=== PATIENT | male | born 1990 | race Caucasian/White ===

== ENCOUNTER 2025-05-31 19:08 | Emergency (ER) | payer OTHER, SELFPAY ==
[2025-05-31 19:23] VITALS: BP 135/75; PULSE 71; RESP 16; TEMP 36.8; O2SAT 99
--- NOTE | 2025-05-31 19:32 | ED.EAR ---
HPI - Ear Problem General Chief complaint: Ear Stated complaint: Ear Pain Time Seen by Provider: 05/31/25 19:25 Source: patient and RN notes reviewed Mode of arrival: ambulatory Limitations: no limitations History of Present Illness HPI Narrative: [id number]-old male patient presents [facility] complaining of right ear pain that started today. Patient also reports having pain discharge, of his right ear. He has been down with upper respiratory infection last 5 days. Patient reports some cough and congestion. Patient has any fevers advice, chills nausea vomiting, diarrhea, chest pain, breathing problems, or any other upper respiratory symptoms. Related Data Allergies Allergy/AdvReac Type Severity Reaction Status Date / Time No Known Allergies Allergy Verified 05/31/25 19:28 Review of Systems Review of Systems: CONSTITUTIONAL: Denies fever, chills, or sweats. EYES: Denies visual changes, redness, or discharge. ENT: Denies rhinorrhea,sore throat. Positive for congestion, otalgia. CARDIOVASCULAR: Denies chest pain, palpitations, or edema. RESPIRATORY: Positive for cough. Negative for wheezing or dyspnea. GASTROINTESTINAL: Denies abdominal pain, nausea, vomiting, or diarrhea. GENITOURINARY: Denies dysuria or hematuria. SKIN: Denies rash or itching. MUSCULOSKELETAL: Denies back pain, joint pain, or myalgia. NEUROLOGIC: Denies headache, numbness, or weakness. PSYCHIATRIC: Denies anxiety or depression. All other systems reviewed are negative, except as documented in HPI. PMFSH Comments At the time of my signature, I reviewed and agree with the nursing past medical, surgical, social, and family history. There is no relevant family history pertinent to the patient complaint. Exam Narrative: GENERAL: This is a well-nourished, well-developed adult, in no apparent distress. They are non ill-appearing, nontoxic appearing. HEAD: normocephalic, atraumatic. EYES: Sclera clear/white. Conjunctiva normal. Vision is grossly intact. Extraocular movements intact EARS: External ears normal, left auditory canal clear and without drainage, no tragal tenderness, right auditory canal erythematous watery bloody discharge present. Left TM normal without perforation. Right TM erythematous with a fusion present. No perforation. Hearing grossly intact. NOSE: External nose normal with no obvious nasal discharge, nasal turbinates erythemic, no rhinorrhea. THROAT: Mucous membranes moist, posterior pharynx cobblestone appearing Uvula midline. NECK: Neck supple, non-tender without lymphadenopathy, masses or thyromegaly. CARDIOVASCULAR: Regular rate and rhythm without murmurs, gallops, or rubs. RESPIRATORY: Clear to auscultation. Breath sounds equal bilaterally. No wheezes, rales, or rhonchi. SKIN: warm, Dry, intact with no suspicious lesions or rash, good texture and turgor. NEURO: awake, alert, and oriented to person, place and time. There were no obvious focal neurologic abnormalities. EXTREMITIES: No joint tenderness, effusion, or edema noted. BACK: Nontender without deformity. Course Course Level of Care: Express Care Visit Vital Signs Vital signs: Vital Signs Temperature 98.3 F 05/31/25 19:23 Pulse Rate 71 05/31/25 19:23 Respiratory Rate 16 05/31/25 19:23 Blood Pressure 135/75 05/31/25 19:23 Pulse Oximetry 99 05/31/25 19:23 Temperature 98.3 F 05/31/25 19:23 Pulse Rate 71 05/31/25 19:23 Respiratory Rate 16 05/31/25 19:23 Blood Pressure 135/75 05/31/25 19:23 Pulse Oximetry 99 05/31/25 19:23 [facility] MDM Narrative Medical decision making narrative: Appears patient likely has a right-sided otitis media along with right-sided otitis externa, will treat with amoxicillin and ofloxacin ear drops. Discussed supportive care. Discussed physical exam findings. Advised supportive measures and signs/symptoms to go to the ER. Pt is appropriate for outpt treatment and f/u. Differential Diagnosis Differential Diagnosis: Differential diagnostic considerations for upper respiratory infection include upper respiratory infection, croup, otitis media, sinusitis, viral infection, bronchitis, influenza, pharyngitis, strep, uvulitis, otitis externa. Critical Care Time Critical Care Time Critical Care Time: No Discharge Plan Discharge Clinical Impression: Otitis externa Qualifiers: Otitis externa type: diffuse Chronicity: acute Laterality: right Qualified Code(s): H60.311 - Diffuse otitis externa, right ear Otitis media Qualifiers: Otitis media type: other nonsuppurative Chronicity: acute Laterality: right Recurrence: non-recurrent Qualified Code(s): H65.191 - Other acute nonsuppurative otitis media, right ear Patient Disposition: Home Condition: Stable Instructions: Antibiotic Form, How to Use Ear Drops (ED), Ear Infection (ED) Additional Instructions: Take antibiotics as directed. Use ear drops as directed. Finish them completely even if you start to feel better. Symptomatic treatment includes: rest, fluids, and increase humidity of the air at home. Tylenol or Motrin as needed for pain or fevers. Please schedule a follow-up visit with your personal physician for further evaluation and treatment within 3-5days. If your symptoms persist, change or worsen significantly, go to the emergency department for further evaluation. Patient Language: Maltese Prescriptions: New ofloxacin 0.3 % drops 10 drp RIGHT EAR DAILY 7 Days Qty: 10 0RF amoxicillin 875 mg tablet 875 mg PO Q12H 7 Days Qty: 14 0RF Follow-up/Referrals: PHYSICIAN,[employer]OR [Primary Care Provider, Internal Medicine] Time of Disposition: 19:30
== END 2025-05-31 19:35 | disposition home or self-care (01) ==
DX: H60.311 Diffuse otitis externa, right ear (principal); H92.11 Otorrhea, right ear
CPT/HCPCS: 99203; G0463